=== PATIENT | male | born 1950 | race Caucasian/White ===

== ENCOUNTER 2018-04-15 21:54 | Emergency (ER) | payer MEDICARE, OTHER ==
[~2018-04-15] VITALS: Ht 177.8 cm; Wt 81.8 kg
[2018-04-15] MEDS ORDERED: ASPI-1265 PO (22:02)
[2018-04-15] MEDS ORDERED: ROSU5TAB PO (22:02)
[2018-04-15] MEDS ORDERED: FINA5TAB3 PO (22:02)
[2018-04-15 23:12] VITALS: BP 132/76
== END 2018-04-15 23:13 ==
LOC: ER 21:54
DX: S06.0X0A Concussion without loss of consciousness, initial encounter (principal); S40.022A Contusion of left upper arm, initial encounter; S00.81XA Abrasion of other part of head, initial encounter; F10.129 Alcohol abuse with intoxication, unspecified; H55.09 Other forms of nystagmus; Z02.89 Encounter for other administrative examinations; Z91.018 Allergy to other foods; Z79.82 Long term (current) use of aspirin; Z79.899 Other long term (current) drug therapy; Y90.9 Presence of alcohol in blood, level not specified; V89.2XXA Person injured in unspecified motor-vehicle accident, traffic, initial encounter; Y93.89 Activity, other specified; Y92.413 State road as the place of occurrence of the external cause; Y99.8 Other external cause status
CPT/HCPCS: 70450; 99284